=== PATIENT | male | born 1950 | race Caucasian/White ===

== ENCOUNTER → 2021-07-27 14:24 | Outpatient (BNVA) | payer MEDICARE, SELFPAY | PROVIDERS: PCP Hospitalist; Visit Provider Nurse Practitioner Family | DX: G47.33 Obstructive sleep apnea (adult) (pediatric) (principal); G47.61 Periodic limb movement disorder | CPT/HCPCS: 99212 ==

== ENCOUNTER → 2022-07-26 09:10 | Outpatient (BNVA) | payer MEDICARE, SELFPAY | PROVIDERS: PCP Hospitalist; Visit Provider Nurse Practitioner Family | DX: G47.33 Obstructive sleep apnea (adult) (pediatric) (principal); G47.61 Periodic limb movement disorder; Z99.89 Dependence on other enabling machines and devices | CPT/HCPCS: 99212 ==

== ENCOUNTER 2023-08-23 11:28 | Outpatient (AMB) | payer MEDICARE, SELFPAY ==
--- NOTE | 2023-08-23 11:44 | MHC.OFFVIS ---
Intake Vital Signs 08/23/23 11:45 Height 5 ft 8 in Weight 215 lb BMI 32.7 BP 140/72 H Blood Pressure Location Rt brachial Position Sitting Pulse 54 Pulse Source Pulse Oximeter Pulse Oximetry (%) 97 Oxygen Delivery Method Room Air Intake Visit Reasons: 1 yr follow up-Conf Intake Note: patient presents for 1 year follow up it's just a follow up Allergies grass pollen Allergy (Intermediate, Verified 08/23/23 11:46) Unknown HPI HPI Comments History of Present Illness Details 72-yr-old male presents for f/u visit. Pt endorses the following interval medical history changes: Underwent left TKR in January 2023- which was very helpful. Cardiology has been following him for BLE edema. He did receive a new CPAP machine. He uses CPAP nightly- he cannot sleep without it. He does still sleep in a recliner- now tends to sleep more upright d/t arthritic hand s/s. The water runs out of the reservoir and the machine has a burning smell. States he called resp company and was told this is normal. He does not know how to adjust the CPAP humidification level. States he has only a 3rd grade education and therefore is hesitant to try to adjust this on his own. His CPAP mask strap causes ear irritation. [facility] Medical History (Updated 07/26/22 @ 10:10 by INOCENCIA Hahn) Heart murmur HTN (hypertension) Right carpal tunnel syndrome Aortic stenosis Surgical History History of carpal tunnel surgery H/O shoulder surgery H/O heart surgery Social History Alcohol intake: current Alcohol intake frequency: holidays/special occasions only Patient Tobacco Use Status: Former Tobacco user Physical Exam Vital Signs: Last Vital Signs Pulse 54 08/23/23 11:45 BP 140/72 H 08/23/23 11:45 Pulse Ox 97 08/23/23 11:45 Oxygen Delivery Method Room Air 08/23/23 11:45 BMI result Body Mass Index 32.7 Const General: cooperative and no acute distress Orientation/consciousness: patient oriented x3 Resp Effort & Inspection: normal respiratory effort and able to speak in complete sentences Neuro General: patient oriented x3 Cranial nerves: Yes CN's II-XII intact bilaterally Cognition (Neuro): normal cognition Psych Appearance: grossly normal Mental Status: mental status grossly normal Speech and movement: Normal speech and movement present Affect: normal affect Attitude: cooperative Assessment & Plan Assessment & Plan (1) Obstructive sleep apnea: Code(s): G47.33 - Obstructive sleep apnea (adult) (pediatric) (2) Periodic limb movement sleep disorder: Code(s): G47.61 - Periodic limb movement disorder Plan Continue CPAP 9 cmH2O nightly > 4 hours, as pt is having good clinical effect. Will request CPAP be connected to [employer] airview account, machine check to assess the burning smell, new mask fitting, and pt education on how to self-adjust humidification settings. Clean machine and change supplies routinely. Monitor PLMS clinically. f/u in 6 months or sooner prn. Coding Level of Care Code Est Pt Level 3 (75219) Diagnoses Obstructive sleep apnea G47.33 Periodic limb movement sleep disorder G47.61
[2023-08-23 11:45] VITALS: BP 140/72; PULSE 54; O2SAT 97; BMI 32.7
== END 2023-08-23 12:15 | disposition home or self-care (01) ==
PROVIDERS: PCP Hospitalist; Visit Provider Nurse Practitioner Family
DX: G47.33 Obstructive sleep apnea (adult) (pediatric) (principal); G47.61 Periodic limb movement disorder
CPT/HCPCS: 99213

== ENCOUNTER → 2023-08-23 11:30 | Outpatient (BNVA) | payer MEDICARE, SELFPAY | PROVIDERS: PCP Hospitalist; Visit Provider Nurse Practitioner Family | DX: G47.33 Obstructive sleep apnea (adult) (pediatric) (principal); G47.61 Periodic limb movement disorder | CPT/HCPCS: 99212 ==

== ENCOUNTER 2024-02-21 11:19 | Outpatient (AMB) | payer MEDICARE, SELFPAY ==
--- NOTE | 2024-02-21 11:27 | MHC.OFFVIS ---
Vital Signs 02/21/24 11:28 Height 5 ft 8 in Weight 226 lb BMI 34.4 BP 134/70 Blood Pressure Location Rt brachial Position Sitting Pulse 62 Pulse Source Pulse Oximeter Pulse Oximetry (%) 97 Oxygen Delivery Method Room Air Intake Visit Reasons: 6m follow up-CONF Intake Note: Patient presents for 6 month follow up Allergies grass pollen Allergy (Intermediate, Verified 02/21/24 11:29) Unknown HPI Comments Details: 73-yr-old male presents for follow-up visit of sleep apnea. Pt denies any significant interval medical history changes. Since the last visit, he did receive a new CPAP machine. He states the new CPAP machine is working very well. He is sleeping well with his CPAP. He does state that he was tried on medication for his memory. He was forgetting why he went into a room or what he went to go to a store for. He was worried what would happen if he started to forget if he gave his however his PCP tried him on 3 different medications, felt it helped his memory but one caused nightmares and the other he did not tolerate. States he has already had difficulty names- states that he always thought this was d/t his dyslexia. He has f/u w/ [facility]- has been having urinary frequency and urgency. Urinary does drip. He states that he cannot stop voiding once it starts. Now wearing pants w/ elastic waist band- to make it easier to make it to the bathroom soon. Does have a h/o BPH. He has a long h/o enuresis (1-2 x's especially if dreaming about going to the bathroom. Denies change in gait- states gait is better since undergoing left TKR, he now walks straighter. RLE turns outward while walking, left foot used to. He continues to have leg swelling. Leg movements are not bothersome. Overal he is not very active- needs to stay with his . He is still his 's primary caregiver- his will be going on hospice. He does have a couple of hours per week where he has time for himself- goes to a old friend's house. [facility] Medical History (Updated 02/21/24 @ 12:58 by INOCENCIA Hahn) Heart murmur HTN (hypertension) Right carpal tunnel syndrome Aortic stenosis Surgical History History of carpal tunnel surgery H/O shoulder surgery H/O heart surgery Social History Alcohol intake: current Alcohol intake frequency: holidays/special occasions only Patient Tobacco Use Status: Former Tobacco user Physical Exam Vital Signs: Last Vital Signs Pulse 62 02/21/24 11:28 BP 134/70 02/21/24 11:28 Pulse Ox 97 02/21/24 11:28 Oxygen Delivery Method Room Air 02/21/24 11:28 BMI result Body Mass Index 34.4 Const General: no acute distress Orientation/consciousness: patient oriented x3 HEENT Other: Mallampati stage Resp Effort & Inspection: normal respiratory effort and able to speak in complete sentences Auscultation: clear to auscultation bilaterally Neuro Other: Stands slowly. Mild RLE external rotation. Stride ok. No magnetic/shuffling gait. General: patient oriented x3 Cranial nerves: Yes CN's II-XII intact bilaterally Motor exam (neuro): 5/5 motor strength present throughout Psych Mental Status: mental status grossly normal Speech and movement: Clear speech present Attitude: cooperative Assessment & Plan Assessment & Plan (1) Obstructive sleep apnea: Code(s): G47.33 - Obstructive sleep apnea (adult) (pediatric) Category: Medical (2) Periodic limb movement sleep disorder: Code(s): G47.61 - Periodic limb movement disorder Category: Medical (3) Cognitive changes: Code(s): R41.89 - Other symptoms and signs involving cognitive functions and awareness Category: Medical Plan Continue CPAP 9 cmH2O nightly > 4 hours, as pt is having good clinical effect. Will request new CPAP machine be connected to [employer] account. Clean machine and change supplies routinely. Monitor PLMS clinically. For memory difficulties: Pt does also report urinary s/s, though no gait changes or magnetic gait, thus low suspicion for NPH. Will request recent PCP notes- pt does not recall which medications he was tried on. Advised to try to engage in regular physical activity, cognitive and social activities. Note there may be some level of caregiver stress/burden impacting pt's cognitive s/s. Future considerations- neuro-psych eval, head imaging rah assess for NPH. f/u in 6-12 months or sooner prn. Scribe Plan - Not visible on output: Continue [CPAP][APAP] cmH2O nightly > 4 hours, as pt continues to have good clinical effect from use.. Clean CPAP machine and supplies routinely. Change CPAP supplies routinely. Pt to contact us or respiratory compnay with any questions or concerns. Coding Level of Care Code Est Pt Level 3 (76178) Diagnoses Obstructive sleep apnea G47.33 Periodic limb movement sleep disorder G47.61 Cognitive changes R41.89
[2024-02-21 11:28] VITALS: BP 134/70; PULSE 62; O2SAT 97; BMI 34.4
== END 2024-02-21 12:15 | disposition home or self-care (01) ==
PROVIDERS: PCP Hospitalist; Visit Provider Nurse Practitioner Family
DX: G47.33 Obstructive sleep apnea (adult) (pediatric) (principal); G47.61 Periodic limb movement disorder; R41.89 Other symptoms and signs involving cognitive functions and awareness
CPT/HCPCS: 99213

== ENCOUNTER → 2024-02-21 11:19 | Outpatient (BNVA) | payer MEDICARE, SELFPAY | PROVIDERS: PCP Hospitalist; Visit Provider Nurse Practitioner Family | DX: G47.33 Obstructive sleep apnea (adult) (pediatric) (principal); G47.61 Periodic limb movement disorder; R41.89 Other symptoms and signs involving cognitive functions and awareness; Z99.89 Dependence on other enabling machines and devices | CPT/HCPCS: 99212 ==

== ENCOUNTER 2025-02-13 10:59 | Outpatient (AMB) | payer MEDICARE, SELFPAY ==
--- OUTSIDE RECORDS SUMMARY | 2025-02-13 08:40 | XMS_ITS | Encounter Summary ---
Author Organization [facility] Address [address] [place] [address] Care Team Providers Care Hazardous Materials Waste Technician Name Role Phone Darren Vaz MD Primary Care Provider [phone] Reason for Visit * Reason Comments Follow-up 3 mo f/u Encounter Details Date Type Department Care Team (Late st Contact Info) Description 02/13/2025 8:40 AM EDT Office Visit [facility] - [address] [place] [id number] Crystal Posadas NP [address] [place] [address] Coronary artery disease involving coushatta coronary artery of coushatta heart without angina pectoris (Primary Dx); Primary hypertension; Severe aortic stenosis; Hyperlipidemia, unspecified hyperlipidemia type Social History Tobacco Use Types Packs/Day Years Used Date Smoking Tobacco: Former Smokeless Tobacco: Never Alcohol Use Standard Drinks/Week Comments Yes 0 (1 standard drink = 0.6 oz pur e alcohol) occasional Sex and Gender Information Value Date Recorded Sex Assigned at Not on file Legal Sex Male 9:45 AM EST Gender Identity Not on file Sexual Orientation Not on file documented as of this encounter Last Filed Vital Signs Vital Sign Reading Time Taken Comments Blood Pressure 130/82 02/13/2025 8:48 AM EDT Pulse 78 02/13/2025 8:48 AM EDT Temperature - - Respiratory Rate - - Oxygen Saturation 93% 02/13/2025 8:48 AM EDT Inhaled Oxygen Concentration - - Weight 104 kg (229 lb) 02/13/2025 8:48 AM EDT Height 172.7 cm (5' 8 ) 02/13/2025 8:48 AM EDT Body Mass Index 34.82 02/13/2025 8:48 AM EDT documented in this encounter Progress Notes * Crystal Posadas NP - 02/13/2025 8:40 AM EDTAssociated Problem(s): Coronary artery disease Patient denies any new anginal symptoms. Stress testing as outlined above negative for ischemia. Hewill continue on aspirin, statin, metoprolol and amlodipine. Instructed to call 911 or go to the emergency room should the patient begin to experience chest pain or pressure lasting greater than 10 mi nutes does not resolve with rest. * Crystal Posadas NP - 02/13/2025 8:40 AM EDTAssociated Problem(s): Hypertension Acceptable during today's exam with a reading of 130/82. He will continue on his current dose of amlodipine 10 mg, losartan 100 mg, metoprolol succinate 50 mg. Educated on the importance of diet lifestyle to help further assist in reducing blood pressure. The patient was encouraged to follow low-salt low-fat diet, make purposeful strides towards weight loss, and engage in routine aerobic exerciseas tolerated. * Crystal Posadas NP - 02/13/2025 8:40 AM EDTAssociated Problem(s): Severe aortic stenosis Is post AVR in 2015. He appears to euvolemic upon exam today. He will continue on his current dose of furosemide 40 mg. Patient had surveillance echocardiogram in July 2024 which revealed a well-seated and normally functioning prosthetic aortic valve. * Crystal Posadas NP - 02/13/2025 8:40 AM EDTAssociated Problem(s): Hyperlipidemia Continue Lipitor 40 mg and he will be mindful of his dietary fat intake. Goal LDL less than 70. Canconsider updating fasting lipid profile prior to his next in office visit unless already performed by his PCP. documented in this encounter Plan of Treatment Not on file documented as of this encounter Visit Diagnoses Diagnosis Coronary artery disease involving coushatta coronary artery of coushatta heart without angina pectoris- Primary Primary hypertension Unspecified essential hypertension Severe aortic stenosis Aortic valve disorders Hyperlipidemia, unspecified hyperlipidemia type documented in this encounter Discontinued Medications Medication Sig Discontinue Reason Start Date End Da te furosemide (LASIX) 20 mg tablet Take 1 tablet (20 mg total) by mouth 2 (two) times a day. Duplicate order 01/28/2025 02/13/2025 documented as of this encounter Care Teams Hazardous Materials Waste Technician Relationship Specialty Start Date End Date Darren Vaz MD [address] [place] [phone] PCP - General Internal Medicine 05/25/20 documented as of this encounter
[2025-02-13 11:36] VITALS: BP 104/60; PULSE 65; O2SAT 95; BMI 34.4
--- NOTE | 2025-02-13 11:36 | MHC.OFFVIS ---
Vital Signs 02/13/25 11:36 Height 5 ft 8 in Weight 226 lb BMI 34.4 BP 104/60 Blood Pressure Location Rt brachial Position Sitting Pulse 65 Pulse Source Pulse Oximeter Pulse Oximetry (%) 95 Oxygen Delivery Method Room Air Intake Visit Reasons: 1yr F/U Intake Note: Patient presents for 6 month follow up Electrical Lineman Required: No Accompanied by: Self / Same As Patient Allergies grass pollen Allergy (Intermediate, Verified 02/13/25 11:37) Unknown Medication List - Last Reconciled 02/13/25 by INOCENCIA Hahn amlodipine 5 mg PO DAILY aspirin (Adult Low Dose Aspirin) 81 mg PO DAILY atorvastatin 40 mg PO DAILY cholecalciferol (vitamin D3) 25 mcg PO DAILY furosemide 20 mg PO DAILY furosemide (Lasix) 40 mg PO DAILY losartan 25 mg PO DAILY losartan 100 mg PO DAILY metoprolol succinate ER 50 mg PO DAILY oxybutynin chloride ER 10 mg PO DAILY pantoprazole 40 mg PO DAILY sertraline 25 mg PO DAILY solifenacin 10 mg PO DAILY tamsulosin 0.4 mg PO BEDTIME trazodone 50 mg PO DAILY trazodone 100 mg PO BEDTIME PRN HPI Comments Details: 73-yr-old male presents for follow-up visit of sleep apnea. Pt denies any significant interval medical history changes. However, since the last visit, his has , and since has been trying to pay more attention was phone healthcare needs. Notes that this is his 3rd medical appointment today, that he had recent cardiac testing that was within normal limits Reports he is sleeping well with his CPAP. He is now able to sleep longer, as he does not need to wake up to care for his . Sometimes he wakes up with a dry mouth, even when the CPAP water tank reservoir still has water in it. He does take sips of water when he wakes up at night bathroom He endorses some restless leg symptoms, however does not feel that these are bothersome enough to start medication at this time No reports of worsening memory, however notes that his dyslexia can make it difficult to use the computer, specifically at C5 to figure out what to do with his 's old medical equipment. [employer]: [email or web address] [address] [facility], [facility], [address] Phone: , CPAP machine info: [employer] 11 AutoSet Serial number [id number] [employer] Compliance Report 11/15/2024 - 02/12/2025 Overall usage 99% Usage greater than 4 hours 90% Average usage (days used) 7 hours 39 minutes Mode CPAP 9 cmH2O with EPR 2 Median leaks 39 L/min Residual AHI 3.9 per hour [facility] Medical History (Updated 02/21/24 @ 12:58 by INOCENCIA Hahn) Heart murmur HTN (hypertension) Right carpal tunnel syndrome Aortic stenosis Surgical History History of carpal tunnel surgery H/O shoulder surgery H/O heart surgery Social History Alcohol intake: current Alcohol intake frequency: holidays/special occasions only Patient Tobacco Use Status: Former Tobacco user Physical Exam Vital Signs: Last Vital Signs Pulse 65 02/13/25 11:36 BP 104/60 02/13/25 11:36 Pulse Ox 95 02/13/25 11:36 Oxygen Delivery Method Room Air 02/13/25 11:36 BMI result Body Mass Index 34.4 Const General: no acute distress Orientation/consciousness: patient oriented x3 HEENT Other: Mallampati stage Resp Effort & Inspection: normal respiratory effort and able to speak in complete sentences Auscultation: clear to auscultation bilaterally Neuro Other: Stands slowly. Mild RLE external rotation. Stride ok. No magnetic/shuffling gait. General: patient oriented x3 Cranial nerves: Yes CN's II-XII intact bilaterally Motor exam (neuro): 5/5 motor strength present throughout Psych Mental Status: mental status grossly normal Speech and movement: Clear speech present Attitude: cooperative Assessment & Plan Assessment & Plan (1) Obstructive sleep apnea: Code(s): G47.33 - Obstructive sleep apnea (adult) (pediatric) Category: Medical (2) Periodic limb movement sleep disorder: Code(s): G47.61 - Periodic limb movement disorder Category: Medical (3) Cognitive changes: Code(s): R41.89 - Other symptoms and signs involving cognitive functions and awareness Category: Medical Plan Continue CPAP 9 cmH2O nightly > 4 hours, as pt is having good clinical effect. If morning dry mouth, advised to adjust humidification level or try OTC XyliMelts 1-2 caps as needed CPAP machine is now connected to patient's [employer] airview account. Clean machine and change supplies routinely. Use distilled water in CPAP water tank reservoir For PLMS/RLS: Patient is not interested starting medication for this Monitor clinically For memory difficulties: We will continue to monitor clinically Encouraged to engage in regular physical activity, cognitive and social activities. Future considerations- neuro-psych eval, head imaging f/u in 6-12 months or sooner prn. Coding Level of Care Code Est Pt Level 3 (67252) Diagnoses Obstructive sleep apnea G47.33 Periodic limb movement sleep disorder G47.61 Cognitive changes R41.89
--- OUTSIDE RECORDS SUMMARY | 2025-02-13 11:55 | XMS_ITS ---
Author Name [facility] Organization Unknown Encounters Encounter Type Encounter Reason Primary Diagnosis Location Date Ambulatory [facility] 05/01/2024 Care Team Organization Name Specialty Phone Email Start Date End Da te [facility] 2024 [facility] 01/19/2024 [facility] 05/11/2022
--- OUTSIDE RECORDS SUMMARY | 2025-02-13 11:55 | XMS_ITS | Patient Health Record ---
Author Organization [facility] Address [address] [place] [address] Care Team Providers Care Regional Director Name Role Phone YOLANDA YANCEY Primary Care Provider [phone] Leeann Becerra Unavailable [phone] KaterynaRebecca kline Unavailable [phone] Allergies No Known Allergies Results Component Value Reference Range Notes Comp. Metabolic Panel (14-3 [id number] Reviewed date:02/01/2025 11:17:12 AM Interpretation: Performing Lab:[facility], [facility], Phone - [phone], Director - Marisol Notes/Report: Glucose 101 70-99 mg/dL BUN 17 8-27 mg/dL Creatinine 1.11 0.76-1.27 mg/dL eGFR 69 >59 mL/min/1.73 BUN/Creatinine Ratio 15 10-24 Sodium 142 134-144 mmol/L Potassium 4.2 3.5-5.2 mmol/L Chloride 106 96-106 mmol/L Carbon Dioxide, Total 23 20-29 mmol/L Calcium 9.6 8.6-10.2 mg/dL Protein, Total 6.5 6.0-8.5 g/dL Albumin 4.1 3.8-4.8 g/dL Globulin, Total 2.4 1.5-4.5 g/dL Bilirubin, Total 0.9 0.0-1.2 mg/dL Alkaline Phosphatase 61 44-121 IU/L AST (SGOT) 21 0-40 IU/L ALT (SGPT) 24 0-44 IU/L Lipid Panel-[id number] Reviewed date:02/01/2025 07:54:16 AM Interpretation: Performing Lab:[facility], [address] [facility], Phone - [phone], Director - Marisol Notes/Report: Cholesterol, Total 88 100-199 mg/dL Triglycerides 70 0-149 mg/dL HDL Cholesterol 34 >39 mg/dL VLDL Cholesterol Guicho 15 5-40 mg/dL LDL Chol Calc (NIH) 39 0-99 mg/dL Albumin/Creatinine Ratio,Masoud ne-[id number] Reviewed date:02/01/2025 07:54:10 AM Interpretation: Performing Lab:[facility] [address] [place] [address], Phone - [phone], Director - Marisol Notes/Report: Creatinine, Urine 140.3 Not Estab. mg/dL Albumin, Urine 4.5 Not Estab. ug/mL Alb/Creat Ratio 3 0-29 mg/g creat Normal: 0 - 29 Moderately increased: 30 - 300 Severely increased: >300 TSH+Free [id number] Reviewed date:11/09/2024 07:46:35 AM Interpretation: Performing Lab:[facility], [address] [place] [address], Phone - [phone], Director - Marisol Notes/Report: TSH 2.530 0.450-4.500 uIU/mL T4,Free(Direct) 1.37 0.82-1.77 ng/dL Vitamin [id number] Reviewed date:11/09/2024 07:46:44 AM Interpretation: Performing Lab:[facility] [address] [place] [address], Phone - [phone], - Marisol Notes/Report: Vitamin B12 623 327-3961 pg/mL Hemoglobin [id number] Reviewed date:11/09/2024 07:46:50 AM Interpretation: Performing Lab:[facility] [address] [place] [address], Phone - [phone], Director - Marisol Notes/Report: Hemoglobin A1c 4.7 4.8-5.6 % . Prediabetes: 5.7 - 6.4 Diabetes: >6.4 Glycemic control for adults with diabetes: <7.0 Comp. Metabolic Panel (14)-3 Reviewed date:12/24/2024 05:21:56 PM Interpretation: Performing Lab:[facility] [address] [place] [address], Phone - [phone], Director Harper Damon Notes/Report: A courtesy copy of this report has been sent to [phone] Glucose 105 70-99 mg/dL BUN 19 8-27 mg/dL Creatinine 1.24 0.76-1.27 mg/dL eGFR 60 >59 mL/min/1.73 BUN/Creatinine Ratio 15 10-24 Sodium 140 134-144 mmol/L Potassium 4.2 3.5-5.2 mmol/L Chloride 103 96-106 mmol/L Carbon Dioxide, Total 21 20-29 mmol/L Calcium 9.7 8.6-10.2 mg/dL Protein, Total 6.6 6.0-8.5 g/dL Albumin 4.3 3.8-4.8 g/dL Globulin, Total 2.3 1.5-4.5 g/dL Bilirubin, Total 1.3 0.0-1.2 mg/dL Alkaline Phosphatase 80 44-121 IU/L AST (SGOT) 21 0-40 IU/L ALT (SGPT) 21 0-44 IU/L Lipid Panel-[id number] Reviewed date:11/23/2024 09:18:29 AM Interpretation: Performing Lab:[facility], [facility], Phone - [phone], Director - Marisol Notes/Report: A courtesy copy of this report has been sent to [phone] Cholesterol, Total 97 100-199 mg/dL Triglycerides 124 0-149 mg/dL HDL Cholesterol 32 >39 mg/dL VLDL Cholesterol Guicho 22 5-40 mg/dL LDL Chol Calc (NIH) 43 0-99 mg/dL Albumin/Creatinine Ratio,[facility]-[id number] Reviewed date:12/24/2024 05:20:48 PM Interpretation: Performing Lab:[facility], [facility], Phone - [phone], Director - Marisol Notes/Report: A courtesy copy of this report has been sent to [phone] Creatinine, Urine 163.1 Not Estab. mg/dL Albumin, Urine 7.8 Not Estab. ug/mL Alb/Creat Ratio 5 0-29 mg/g creat Normal: 0 - 29 Moderately increased: 30 - 300 Severely increased: >300 Reason For Referral Reason venous insufficiency Please evaluate and treat Diagnosis 1 Venous insufficiency (chronic) (peripheral) (I87.2) Referral Organization [facility] Referring Provider First Name YOLANDA Referring Provider Last Name NAYE Referring Provider Speciality Internal M edicine Referred Provider Specialty Vascular Ruby jacob General Notes Please call the nenita ent to schedule the appointment, [facility] [phone], Parul Mehta 12/19/2024 03:45:16 PM > Referral Priority Routine Medications Medication SIG (Take, Route, Frequency, Duration) Notes Start Date End Date Status Solifenacin Succinate 10 MG 1 tablet Orally Once a day Active Pantoprazole Sodium 40 MG TAKE 1 TABLET EVERY DAY; Duration: 90 Active Cialis 10 MG 1 tablet as needed Orally; Duration: 30 day(s) 10/05/2017 Active Aspir-81 81 MG 1 tablet Orally Once a day; Duration: 30 day(s) 10/05/2017 Active Metoprolol Succinate ER 50 MG TAKE 1 TABLET EVERY DAY; Duration: 90 Active Losartan Potassium 100 MG 1 tablet Orall y Once a day; Duration: 30 day(s) 02/19/2022 Active Memantine HCl 10 MG 1 tablet Orally Once a day; Duration: 30 days 11/18/2023 Not-Takin g Vitamin D 2000 UNIT 1 tablet Orally Once a day; Duration: 30 day(s) 10/05/2017 Active Clotrimazole 1 % APPLY 1 APPLICATION EXTERNALLY TWICE A DAY; Duration: 30 Active oxyBUTYnin Chloride ER 10 MG TAKE 1 TABLET TWICE DAILY; Duration: 90 Not-Taking Sertraline HCl 25 MG 1 tablet Orally Onc e a day; Duration: 90 days 11/13/2024 Active amLODIPine Besylate 10 MG 1 tablet Orall y Once a day; Duration: 30 days 02/19/2022 Active Aricept 10 MG 1 tablet at bedtime Orally Once a day; Duration: 30 days Not-Taking Atorvastatin Calcium 40 MG TAKE 1 TABLET EVERY DAY; Duration: 90 Active traZODone HCl 100 MG TAKE 1 TABLET AT BEDTIME; Duration: 30 Active traZODone HCl 50 MG TAKE 1 TABLET AT BEDTIME; Duration: 90 Active Tamsulosin HCl 0.4 MG 1 capsule Orally O nce a day 05/01/2024 Active Furosemide 20 MG TAKE 2 TABLET EVERY DAY Orally Once a day; Duration: 90 days Active VESIcare 10 MG 1 tablet Orally Once a day 05/01/2024 Active Levocetirizine Dihydrochloride 5 MG 1 tablet in the evening Orally Once a day; Duration: 90 days Active Immunizations Vaccine Route Administration Date Status Comme nts COVID Unknown 09/04/2020 Administered Pfizer COVID 19 Pfizer Unknown 09/09/2020 Administered COVID 19 Pfizer Unknown 09/30/2020 Administered COVID 19 Pfizer Unknown 05/16/2021 Administered Flu High-Dose Unknown 04/12/2022 Administered Fluzone High Dose 15600 IM Intramuscular 05/01/2024 Administered Fluzone High-Dose IM Intramuscular 04/29/2023 Administered Influenza, high dose seasonal Unknown 03/22/2018 Administered at [facility] Influenza, high dose seasonal IM Intramuscular 04/13/2019 Administered Pneumococcal conjugate PCV 13 Unknown 06/29/2018 Administered Pneumococcal polysaccharide PPV23 Unknown 11/06/2013 Administered Shingrix Unknown 02/24/2018 Administered Shingrix Unknown 04/25/2018 Administered Tdap Unknown 07/24/2010 Administered Zoster Unknown 05/07/2013 Administered Social History Tobacco Use: Social History Observation Description Date Details (start date - stop date) Former Smoker NA - NA Tobacco Use/Smoking Question Answer Notes Are you a former smoker How long has it been since you last smoked? > 10 years Alcohol Screen (Audit-C) Question Answer Notes Did you have a drink contain ing alcohol in the past year? Yes How often did you have a dri nk containing alcohol in the past year? Monthly or less (1 point) How many drinks did you have on a typical day when you were drinking in the past year? 1 or 2 drinks (0 point) Points 1 Interpretation Negative Problems Problem Type SNOMED Code ICD Code Onset Dates Problem Status W/U Status Risk Notes Problem Vitamin D deficiency (63671065) Vitamin D deficiency, unspecified (E55.9) Active confirmed Problem Mixed hyperlipidemia (036554956) Mixed hyperlipidemia (E78.2) Active confirmed Problem Chronic alcoholism in remission (082006763) Alcohol dependence, in remission (F10.21) Active confirmed Problem Major depression, single episode (71292793) Major depressive disorder, single episode, unspecified (F32.9) Active confirmed Problem Anxiety disorder (593959972) Anxiety disorder, unspecified (F41.9) Active confirmed Problem Insomnia (671483536) Insomnia, unspecified (G47.00) Active confirmed Problem Obstructive sleep apnea syndrome (17793971) Obstructive sleep apnea (adult) (pediatric) (G47.33) Active confirmed Problem Carpal tunnel syndrome (63130542) Carpal tunnel syndrome, unspecified upper limb (G56.00) Active confirmed Problem Essential hypertension (70189049) Essential (primary) hypertension (I10) Active confirmed Problem Chronic kidney disease due to hypertension (437933927994898) Hypertensive chronic kidney disease with stage 1 through stage 4 chronic kidney disease, or unspecified chronic kidney disease (I12.9) Active confirmed Problem Atherosclerotic heart disease of [place] coronary artery without angina pectoris (445489606187248) Atherosclerotic heart disease of [place] coronary artery without angina pectoris (I25.10) Active confirmed Problem Aortic valve disorder (5571317) Nonrheumatic aortic (valve) stenosis (I35.0) Active confirmed Problem Raynaud's disease (114029713) Raynaud's syndrome without gangrene (I73.00) Active confirmed Problem Peripheral venous insufficiency (94264610) Venous insufficiency (chronic) (peripheral) (I87.2) Active confirmed Problem Gastro-esophageal reflux disease without esophagitis (723583252) Gastro-esophageal reflux disease without esophagitis (K21.9) Active confirmed Problem Constipation (15714181) Constipation, unspecified (K59.00) Active confirmed Problem Dermatitis (416464351) Dermatitis, unspecified (L30.9) Active confirmed Problem Full thickness rotator cuff tear (657018282) Complete rotator cuff tear or rupture of unspecified shoulder, not specified as traumatic (M75.120) Active confirmed Problem Chronic kidney disease stage 2 (200293093) Chronic kidney disease, stage 2 (mild) (N18.2) Active confirmed Problem Erectile dysfunction (disorder) (420703257) Male erectile dysfunction, unspecified (N52.9) Active confirmed Problem Heart murmur (finding) (87090005) Cardiac murmur, unspecified (R01.1) Active confirmed Problem Cardiac implant in situ (271860476) Presence of cardiac and vascular implant and graft, unspecified (Z95.9) Active confirmed Problem Benign prostatic hypertrophy without outflow obstruction (164997406) Benign prostatic hyperplasia without lower urinary tract symptoms (N40.0) Active confirmed Problem Lower urinary tract symptoms due to benign prostatic hypertrophy (94902451777834) Benign prostatic hyperplasia with lower urinary tract symptoms (N40.1) Active confirmed Problem Suicide attempt (26567879) Suicide attempt, initial encounter (T14.91XA) Active confirmed Problem Amnesia (95558075) Complaints of memory disturbance (R41.3) Active confirmed Vital Signs Heart Rate 69 /min 12/11/2024 Temperature 98.0 degrees Fahrenheit 12/11/2024 Blood pressure diastolic 74 mm Hg 12/11/2024 Oximetry 90 % 12/11/2024 Height 67.13 in 12/11/2024 Blood pressure systolic 110 mm Hg 12/11/2024 Weight 226.8 lbs 12/11/2024 BMI 35.38 kg/m2 12/11/2024 Encounters Encounter Location Date Provider Diagnosis [address] [address] 05/01/2024 YOLANDA YANCEY Atherosclerotic hear t disease of [place] coronary artery without angina pectoris I25.10 ; Essential (primary) hypertension I10 ; Anxiety disorder, unspecified F41.9 ; Gastro-esophageal reflux disease without esophagitis K21.9 and Benign prostatic hyperplasia with lower urinary tract symptoms N40.[address] [address] 07/05/2024 [place] Alam Acute bronchitis due to other specified organisms J20.[address] [address] 11/13/2024 Ghadeer Rodríguezloum Atherosclerotic hear t disease of [place] coronary artery without angina pectoris I25.10 ; Annual visit for general adult medical examination without abnormal findings Z00.00 ; Essential (primary) hypertension I10 ; Gastro-esophageal reflux disease without esophagitis K21.9 ; Benign prostatic hyperplasia with lower urinary tract symptoms N40.1 ; Insomnia, unspecified G47.00 ; Dyspnea, unspecified R06.00 and Major depressive disorder, single episode, unspecified F32.[address] [address] 12/11/2024 YOLANDA YANCEY Anxiety disorder, unspecified F41.9 ; Atherosclerotic heart disease of [place] coronary artery without angina pectoris I25.10 ; Mixed hyperlipidemia E78.2 ; Venous insufficiency (chronic) (peripheral) I87.2 ; Essential (primary) hypertension I10 ; Gastro-esophageal reflux disease without esophagitis K21.9 and Insomnia, unspecified G47.[address] [address] 02/15/2024 YOLANDA YANCEY [address] [address] 05/03/2024 YOLANDA YANCEY Impaired fasting glucose R73.[address] [address] 12/03/2024 Rebecca Choi Insomnia, unspecifie d G47.[address] [address] 12/12/2024 YOLANDA YANCEY Insomnia, unspecifie d G47.[address] [address] 12/12/2024 Rebecca Choi Assessments Encounter Date Diagnosis (ICD Code) Assessment Notes Treatment Notes Treatment Clinical Notes Section Notes 05/03/2024 Impaired fasting glucose (ICD-10 - R73.01) 07/05/2024 Acute bronchitis due to other specified organisms (ICD-10 - J20.8) 73-year-old gentleman with GERD, sleep apnea on CPAP came in with cough chills and not well for the last 5 days. Productive cough and pleuritic chest pain, based on exam and 6 presentation most likely acute bacterial bronchitis/possibl e early pneumonia. Patient is currently afebrile but due to other complaints we will give him Z-Korey for 5 days, he will use Flonase as he has severe congestion. Mucinex 600 mg twice a day as needed. Continue with Tylenol as needed for fever. If no improvement we will consider a chest x-ray. Chronic medical condition GERD, sleep apnea stable 11/13/2024 Atherosclerotic heart disease of [place] coronary artery without angina pectoris (ICD-10 - I25.10) Mr. Smith is a 73 year old gentleman with impaired fasting glucose, hypertension, hyperlipidemia, CAD and GERD here for Medicare Wellness visit. Plan is as follows: CAD/venous insuffeciency. s/p valve replacement. He is on Lasix. He follows up with Cardiology. Keep legs elevated and monitor weight at home. He may also wear compression stockings. Hypertension. Blood pressure is within reasonable limits. Continue current regimen. EKG is done in office today with heart rate of 63 bpm, sinus rhythm. 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 He had a recent echo which showed ejection fraction of 60-65 percent, with no LV wall motion abnormality. With right ventricle cavity mildly dilated, trace mitral and tricuspid regurgitation. Otherwise no concern. check comp/microalbumin Hyperlipidemia. Last lipid panel within normal limits. Continue Atorvastatin 40 mg daily. GERD. Continue Pantoprazole 40 MG daily. BPH. He is on Flomax 0.4 mg and Vesicare 10 mg EDWAR. He is interested on using CPAP. MDD/Insmonia: started patient on sertraline 25 mg. Possible side effects have been discussed. He does have family support. No SI. Will follow up in 4 weeks Increased Trazodone to 100mg. Dyspnea. Ongoing CC since May. Etiology is Multifactorial given history of cardiac problems, deconditioning, he recently had echo which was non-concerning, he does have an upcoming stress echo test done with the electronic resources librarian. Physical examination is non-concerning with vital signs within normal limits and EKG is not concerning as well. However, with a long history of smoking, will get a CT of the lung and order PFTS to r/o obstructive lung disease. Eye screening. He sees his permit technician regularly. Dental screening. He sees dentist regularly Immunizations. He is up-to-date on his COVID, influenza, pneumonia, shingles, zoster, TDAP vaccinations. Full code. HCP form has been provided for update as his was his HCP and she recently . General concerns have been discussed I have rendered the services for this patient under direct supervision of Dr. Yancey, who did not see the patient but was available upon request 11/13/2024 Annual visit for general adult medical examination without abnormal findings (ICD-10 - Z00.00) Mr. Smith is a 73 year old gentleman with impaired fasting glucose, hypertension, hyperlipidemia, CAD and GERD here for Medicare Wellness visit. Plan is as follows: CAD/venous insuffeciency. s/p valve replacement. He is on Lasix. He follows up with Cardiology. Keep legs elevated and monitor weight at home. He may also wear compression stockings. Hypertension. Blood pressure is within reasonable limits. Continue current regimen. EKG is done in office today with heart rate of 63 bpm, sinus rhythm. 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 He had a recent echo which showed ejection fraction of 60-65 percent, with no LV wall motion abnormality. With right ventricle cavity mildly dilated, trace mitral and tricuspid regurgitation. Otherwise no concern. check comp/microalbumin Hyperlipidemia. Last lipid panel within normal limits. Continue Atorvastatin 40 mg daily. GERD. Continue Pantoprazole 40 MG daily. BPH. He is on Flomax 0.4 mg and Vesicare 10 mg EDWAR. He is interested on using CPAP. MDD/Insmonia: started patient on sertraline 25 mg. Possible side effects have been discussed. He does have family support. No SI. Will follow up in 4 weeks Increased Trazodone to 100mg. Dyspnea. Ongoing CC since May. Etiology is Multifactorial given history of cardiac problems, deconditioning, he recently had echo which was non-concerning, he does have an upcoming stress echo test done with the electronic resources librarian. Physical examination is non-concerning with vital signs within normal limits and EKG is not concerning as well. However, with a long history of smoking, will get a CT of the lung and order PFTS to r/o obstructive lung disease. Eye screening. He sees his permit technician regularly. Dental screening. He sees dentist regularly Immunizations. He is up-to-date on his COVID, influenza, pneumonia, shingles, zoster, TDAP vaccinations. Full code. HCP form has been provided for update as his was his HCP and she recently . General concerns have been discussed I have rendered the services for this patient under direct supervision of Dr. Yancey, who did not see the patient but was available upon request 12/03/2024 Insomnia, unspecified (ICD-10 - G47.00) 12/11/2024 Anxiety disorder, unspecified (ICD-10 - F41.9) Mr. Smith is a 74 year old gentleman with impaired fasting glucose, hypertension, hyperlipidemia, CAD and recent stress test which was negative for ischemia and last echocardiogram showed EF of 60-65% and GERD here for follow-up on generalized anxiety disorder. Generalized anxiety disorder. He is stable on sertraline 25 mg daily. He has tolerated the medication fine. Discussed with patient we have little to go up if needed. No need for therapy at this point in time. Coronary artery disease/hypertensi on/hyperlipidemia. He recently had stress test done which was negative. His blood pressure is well controlled on losartan 100 mg along with amlodipine 10 mg daily and he is also on atorvastatin 40 mg and last lipid panel was within reasonable limits. Venous insufficiency. He is currently on Lasix 40 mg in the morning which helped with fluid retention from coronary artery disease and venous insufficiency. Stay hydrated. Given referral to vascular surgery for further evaluation. Insomnia. He is currently on trazodone 150 mg daily. Acid reflux. He is on Protonix 40 mg daily and his symptoms are under control. Obesity. Side effects of obesity discussed which is making him more short of breath and causing generalized body aches and pains. Encouraged to increase physical activity cut back on calorie intake. 12/11/2024 Atherosclerotic heart disease of [place] coronary artery without angina pectoris (ICD-10 - I25.10) Mr. Smith is a 74 year old gentleman with impaired fasting glucose, hypertension, hyperlipidemia, CAD and recent stress test which was negative for ischemia and last echocardiogram showed EF of 60-65% and GERD here for follow-up on generalized anxiety disorder. Generalized anxiety disorder. He is stable on sertraline 25 mg daily. He has tolerated the medication fine. Discussed with patient we have little to go up if needed. No need for therapy at this point in time. Coronary artery disease/hypertensi on/hyperlipidemia. He recently had stress test done which was negative. His blood pressure is well controlled on losartan 100 mg along with amlodipine 10 mg daily and he is also on atorvastatin 40 mg and last lipid panel was within reasonable limits. Venous insufficiency. He is currently on Lasix 40 mg in the morning which helped with fluid retention from coronary artery disease and venous insufficiency. Stay hydrated. Given referral to vascular surgery for further evaluation. Insomnia. He is currently on trazodone 150 mg daily. Acid reflux. He is on Protonix 40 mg daily and his symptoms are under control. Obesity. Side effects of obesity discussed which is making him more short of breath and causing generalized body aches and pains. Encouraged to increase physical activity cut back on calorie intake. 12/12/2024 Insomnia, unspecified (ICD-10 - G47.00) 05/01/2024 Essential (primary) hypertension (ICD-10 - I10) Mr. Smith is a 73 year old gentleman with impaired fasting glucose, hypertension, hyperlipidemia, CAD and GERD here for f/u Plan is as follows: CAD. s/p valve replacement. He is on Lasix. He follows up with Cardiology Venous insuffeciency. Most likely calorie/sodium intake. Dietary compliance encouraged. Continue Lasix 20 mg 2 tablets a day for a week then take 1 tablet a day. Keep legs elevated and monitor weight at home. He may also wear compression stockings. Hypertension. Blood pressure is within reasonable limits. Continue current regimen. Hyperlipidemia. Last lipid panel within normal limits. Continue Atorvastatin 40 mg daily. GERD. Continue Pantoprazole 40 MG daily. BPH. He is on Flomax 0.4 mg and Vesicare 10 mg EDWAR. He is interested on using CPAP. Eye screening. He sees his permit technician regularly. Dental screening. He sees dentist regularly Immunizations. He is up-to-date on his COVID, influenza, pneumonia, shingles, zoster, TDAP vaccinations. General health concerns discussed with patient. 05/01/2024 Atherosclerotic heart disease of [place] coronary artery without angina pectoris (ICD-10 - I25.10) Mr. Smith is a 73 year old gentleman with impaired fasting glucose, hypertension, hyperlipidemia, CAD and GERD here for f/u Plan is as follows: CAD. s/p valve replacement. He is on Lasix. He follows up with Cardiology Venous insuffeciency. Most likely calorie/sodium intake. Dietary compliance encouraged. Continue Lasix 20 mg 2 tablets a day for a week then take 1 tablet a day. Keep legs elevated and monitor weight at home. He may also wear compression stockings. Hypertension. Blood pressure is within reasonable limits. Continue current regimen. Hyperlipidemia. Last lipid panel within normal limits. Continue Atorvastatin 40 mg daily. GERD. Continue Pantoprazole 40 MG daily. BPH. He is on Flomax 0.4 mg and Vesicare 10 mg EDWAR. He is interested on using CPAP. Eye screening. He sees his permit technician regularly. Dental screening. He sees dentist regularly Immunizations. He is up-to-date on his COVID, influenza, pneumonia, shingles, zoster, TDAP vaccinations. General health concerns discussed with patient. 05/01/2024 Anxiety disorder, unspecified (ICD-10 - F41.9) Mr. Smith is a 73 year old gentleman with impaired fasting glucose, hypertension, hyperlipidemia, CAD and GERD here for f/u Plan is as follows: CAD. s/p valve replacement. He is on Lasix. He follows up with Cardiology Venous insuffeciency. Most likely calorie/sodium intake. Dietary compliance encouraged. Continue Lasix 20 mg 2 tablets a day for a week then take 1 tablet a day. Keep legs elevated and monitor weight at home. He may also wear compression stockings. Hypertension. Blood pressure is within reasonable limits. Continue current regimen. Hyperlipidemia. Last lipid panel within normal limits. Continue Atorvastatin 40 mg daily. GERD. Continue Pantoprazole 40 MG daily. BPH. He is on Flomax 0.4 mg and Vesicare 10 mg EDWAR. He is interested on using CPAP. Eye screening. He sees his permit technician regularly. Dental screening. He sees dentist regularly Immunizations. He is up-to-date on his COVID, influenza, pneumonia, shingles, zoster, TDAP vaccinations. General health concerns discussed with patient. 12/11/2024 Mixed hyperlipidemia (ICD-10 - E78.2) Mr. Smith is a 74 year old gentleman with impaired fasting glucose, hypertension, hyperlipidemia, CAD and recent stress test which was negative for ischemia and last echocardiogram showed EF of 60-65% and GERD here for follow-up on generalized anxiety disorder. Generalized anxiety disorder. He is stable on sertraline 25 mg daily. He has tolerated the medication fine. Discussed with patient we have little to go up if needed. No need for therapy at this point in time. Coronary artery disease/hypertensi on/hyperlipidemia. He recently had stress test done which was negative. His blood pressure is well controlled on losartan 100 mg along with amlodipine 10 mg daily and he is also on atorvastatin 40 mg and last lipid panel was within reasonable limits. Venous insufficiency. He is currently on Lasix 40 mg in the morning which helped with fluid retention from coronary artery disease and venous insufficiency. Stay hydrated. Given referral to vascular surgery for further evaluation. Insomnia. He is currently on trazodone 150 mg daily. Acid reflux. He is on Protonix 40 mg daily and his symptoms are under control. Obesity. Side effects of obesity discussed which is making him more short of breath and causing generalized body aches and pains. Encouraged to increase physical activity cut back on calorie intake. 11/13/2024 Essential (primary) hypertension (ICD-10 - I10) Mr. Smith is a 73 year old gentleman with impaired fasting glucose, hypertension, hyperlipidemia, CAD and GERD here for Medicare Wellness visit. Plan is as follows: CAD/venous insuffeciency. s/p valve replacement. He is on Lasix. He follows up with Cardiology. Keep legs elevated and monitor weight at home. He may also wear compression stockings. Hypertension. Blood pressure is within reasonable limits. Continue current regimen. EKG is done in office today with heart rate of 63 bpm, sinus rhythm. 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 He had a recent echo which showed ejection fraction of 60-65 percent, with no LV wall motion abnormality. With right ventricle cavity mildly dilated, trace mitral and tricuspid regurgitation. Otherwise no concern. check comp/microalbumin Hyperlipidemia. Last lipid panel within normal limits. Continue Atorvastatin 40 mg daily. GERD. Continue Pantoprazole 40 MG daily. BPH. He is on Flomax 0.4 mg and Vesicare 10 mg EDWAR. He is interested on using CPAP. MDD/Insmonia: started patient on sertraline 25 mg. Possible side effects have been discussed. He does have family support. No SI. Will follow up in 4 weeks Increased Trazodone to 100mg. Dyspnea. Ongoing CC since May. Etiology is Multifactorial given history of cardiac problems, deconditioning, he recently had echo which was non-concerning, he does have an upcoming stress echo test done with the electronic resources librarian. Physical examination is non-concerning with vital signs within normal limits and EKG is not concerning as well. However, with a long history of smoking, will get a CT of the lung and order PFTS to r/o obstructive lung disease. Eye screening. He sees his permit technician regularly. Dental screening. He sees dentist regularly Immunizations. He is up-to-date on his COVID, influenza, pneumonia, shingles, zoster, TDAP vaccinations. Full code. HCP form has been provided for update as his was his HCP and she recently . General concerns have been discussed I have rendered the services for this patient under direct supervision of Dr. Yancey, who did not see the patient but was available upon request 11/13/2024 Gastro-esophageal reflux disease without esophagitis (ICD-10 - K21.9) Mr. Smith is a 73 year old gentleman with impaired fasting glucose, hypertension, hyperlipidemia, CAD and GERD here for Medicare Wellness visit. Plan is as follows: CAD/venous insuffeciency. s/p valve replacement. He is on Lasix. He follows up with Cardiology. Keep legs elevated and monitor weight at home. He may also wear compression stockings. Hypertension. Blood pressure is within reasonable limits. Continue current regimen. EKG is done in office today with heart rate of 63 bpm, sinus rhythm. 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 He had a recent echo which showed ejection fraction of 60-65 percent, with no LV wall motion abnormality. With right ventricle cavity mildly dilated, trace mitral and tricuspid regurgitation. Otherwise no concern. check comp/microalbumin Hyperlipidemia. Last lipid panel within normal limits. Continue Atorvastatin 40 mg daily. GERD. Continue Pantoprazole 40 MG daily. BPH. He is on Flomax 0.4 mg and Vesicare 10 mg EDWAR. He is interested on using CPAP. MDD/Insmonia: started patient on sertraline 25 mg. Possible side effects have been discussed. He does have family support. No SI. Will follow up in 4 weeks Increased Trazodone to 100mg. Dyspnea. Ongoing CC since May. Etiology is Multifactorial given history of cardiac problems, deconditioning, he recently had echo which was non-concerning, he does have an upcoming stress echo test done with the electronic resources librarian. Physical examination is non-concerning with vital signs within normal limits and EKG is not concerning as well. However, with a long history of smoking, will get a CT of the lung and order PFTS to r/o obstructive lung disease. Eye screening. He sees his permit technician regularly. Dental screening. He sees dentist regularly Immunizations. He is up-to-date on his COVID, influenza, pneumonia, shingles, zoster, TDAP vaccinations. Full code. HCP form has been provided for update as his was his HCP and she recently . General concerns have been discussed I have rendered the services for this patient under direct supervision of Dr. Yancey, who did not see the patient but was available upon request 12/11/2024 Venous insufficiency (chronic) (peripheral) (ICD-10 - I87.2) Mr. Smith is a 74 year old gentleman with impaired fasting glucose, hypertension, hyperlipidemia, CAD and recent stress test which was negative for ischemia and last echocardiogram showed EF of 60-65% and GERD here for follow-up on generalized anxiety disorder. Generalized anxiety disorder. He is stable on sertraline 25 mg daily. He has tolerated the medication fine. Discussed with patient we have little to go up if needed. No need for therapy at this point in time. Coronary artery disease/hypertensi on/hyperlipidemia. He recently had stress test done which was negative. His blood pressure is well controlled on losartan 100 mg along with amlodipine 10 mg daily and he is also on atorvastatin 40 mg and last lipid panel was within reasonable limits. Venous insufficiency. He is currently on Lasix 40 mg in the morning which helped with fluid retention from coronary artery disease and venous insufficiency. Stay hydrated. Given referral to vascular surgery for further evaluation. Insomnia. He is currently on trazodone 150 mg daily. Acid reflux. He is on Protonix 40 mg daily and his symptoms are under control. Obesity. Side effects of obesity discussed which is making him more short of breath and causing generalized body aches and pains. Encouraged to increase physical activity cut back on calorie intake. 05/01/2024 Gastro-esophageal reflux disease without esophagitis (ICD-10 - K21.9) Mr. Smith is a 73 year old gentleman with impaired fasting glucose, hypertension, hyperlipidemia, CAD and GERD here for f/u Plan is as follows: CAD. s/p valve replacement. He is on Lasix. He follows up with Cardiology Venous insuffeciency. Most likely calorie/sodium intake. Dietary compliance encouraged. Continue Lasix 20 mg 2 tablets a day for a week then take 1 tablet a day. Keep legs elevated and monitor weight at home. He may also wear compression stockings. Hypertension. Blood pressure is within reasonable limits. Continue current regimen. Hyperlipidemia. Last lipid panel within normal limits. Continue Atorvastatin 40 mg daily. GERD. Continue Pantoprazole 40 MG daily. BPH. He is on Flomax 0.4 mg and Vesicare 10 mg EDWAR. He is interested on using CPAP. Eye screening. He sees his permit technician regularly. Dental screening. He sees dentist regularly Immunizations. He is up-to-date on his COVID, influenza, pneumonia, shingles, zoster, TDAP vaccinations. General health concerns discussed with patient. 05/01/2024 Benign prostatic hyperplasia with lower urinary tract symptoms (ICD-10 - N40.1) Mr. Smith is a 73 year old gentleman with impaired fasting glucose, hypertension, hyperlipidemia, CAD and GERD here for f/u Plan is as follows: CAD. s/p valve replacement. He is on Lasix. He follows up with Cardiology Venous insuffeciency. Most likely calorie/sodium intake. Dietary compliance encouraged. Continue Lasix 20 mg 2 tablets a day for a week then take 1 tablet a day. Keep legs elevated and monitor weight at home. He may also wear compression stockings. Hypertension. Blood pressure is within reasonable limits. Continue current regimen. Hyperlipidemia. Last lipid panel within normal limits. Continue Atorvastatin 40 mg daily. GERD. Continue Pantoprazole 40 MG daily. BPH. He is on Flomax 0.4 mg and Vesicare 10 mg EDWAR. He is interested on using CPAP. Eye screening. He sees his permit technician regularly. Dental screening. He sees dentist regularly Immunizations. He is up-to-date on his COVID, influenza, pneumonia, shingles, zoster, TDAP vaccinations. General health concerns discussed with patient. 11/13/2024 Benign prostatic hyperplasia with lower urinary tract symptoms (ICD-10 - N40.1) Mr. Smith is a 73 year old gentleman with impaired fasting glucose, hypertension, hyperlipidemia, CAD and GERD here for Medicare Wellness visit. Plan is as follows: CAD/venous insuffeciency. s/p valve replacement. He is on Lasix. He follows up with Cardiology. Keep legs elevated and monitor weight at home. He may also wear compression stockings. Hypertension. Blood pressure is within reasonable limits. Continue current regimen. EKG is done in office today with heart rate of 63 bpm, sinus rhythm. 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 He had a recent echo which showed ejection fraction of 60-65 percent, with no LV wall motion abnormality. With right ventricle cavity mildly dilated, trace mitral and tricuspid regurgitation. Otherwise no concern. check comp/microalbumin Hyperlipidemia. Last lipid panel within normal limits. Continue Atorvastatin 40 mg daily. GERD. Continue Pantoprazole 40 MG daily. BPH. He is on Flomax 0.4 mg and Vesicare 10 mg EDWAR. He is interested on using CPAP. MDD/Insmonia: started patient on sertraline 25 mg. Possible side effects have been discussed. He does have family support. No SI. Will follow up in 4 weeks Increased Trazodone to 100mg. Dyspnea. Ongoing CC since May. Etiology is Multifactorial given history of cardiac problems, deconditioning, he recently had echo which was non-concerning, he does have an upcoming stress echo test done with the electronic resources librarian. Physical examination is non-concerning with vital signs within normal limits and EKG is not concerning as well. However, with a long history of smoking, will get a CT of the lung and order PFTS to r/o obstructive lung disease. Eye screening. He sees his permit technician regularly. Dental screening. He sees dentist regularly Immunizations. He is up-to-date on his COVID, influenza, pneumonia, shingles, zoster, TDAP vaccinations. Full code. HCP form has been provided for update as his was his HCP and she recently . General concerns have been discussed I have rendered the services for this patient under direct supervision of Dr. Yancey, who did not see the patient but was available upon request 12/11/2024 Essential (primary) hypertension (ICD-10 - I10) Mr. Smith is a 74 year old gentleman with impaired fasting glucose, hypertension, hyperlipidemia, CAD and recent stress test which was negative for ischemia and last echocardiogram showed EF of 60-65% and GERD here for follow-up on generalized anxiety disorder. Generalized anxiety disorder. He is stable on sertraline 25 mg daily. He has tolerated the medication fine. Discussed with patient we have little to go up if needed. No need for therapy at this point in time. Coronary artery disease/hypertensi on/hyperlipidemia. He recently had stress test done which was negative. His blood pressure is well controlled on losartan 100 mg along with amlodipine 10 mg daily and he is also on atorvastatin 40 mg and last lipid panel was within reasonable limits. Venous insufficiency. He is currently on Lasix 40 mg in the morning which helped with fluid retention from coronary artery disease and venous insufficiency. Stay hydrated. Given referral to vascular surgery for further evaluation. Insomnia. He is currently on trazodone 150 mg daily. Acid reflux. He is on Protonix 40 mg daily and his symptoms are under control. Obesity. Side effects of obesity discussed which is making him more short of breath and causing generalized body aches and pains. Encouraged to increase physical activity cut back on calorie intake. 12/11/2024 Gastro-esophageal reflux disease without esophagitis (ICD-10 - K21.9) Mr. Smith is a 74 year old gentleman with impaired fasting glucose, hypertension, hyperlipidemia, CAD and recent stress test which was negative for ischemia and last echocardiogram showed EF of 60-65% and GERD here for follow-up on generalized anxiety disorder. Generalized anxiety disorder. He is stable on sertraline 25 mg daily. He has tolerated the medication fine. Discussed with patient we have little to go up if needed. No need for therapy at this point in time. Coronary artery disease/hypertensi on/hyperlipidemia. He recently had stress test done which was negative. His blood pressure is well controlled on losartan 100 mg along with amlodipine 10 mg daily and he is also on atorvastatin 40 mg and last lipid panel was within reasonable limits. Venous insufficiency. He is currently on Lasix 40 mg in the morning which helped with fluid retention from coronary artery disease and venous insufficiency. Stay hydrated. Given referral to vascular surgery for further evaluation. Insomnia. He is currently on trazodone 150 mg daily. Acid reflux. He is on Protonix 40 mg daily and his symptoms are under control. Obesity. Side effects of obesity discussed which is making him more short of breath and causing generalized body aches and pains. Encouraged to increase physical activity cut back on calorie intake. 11/13/2024 Insomnia, unspecified (ICD-10 - G47.00) Mr. Smith is a 73 year old gentleman with impaired fasting glucose, hypertension, hyperlipidemia, CAD and GERD here for Medicare Wellness visit. Plan is as follows: CAD/venous insuffeciency. s/p valve replacement. He is on Lasix. He follows up with Cardiology. Keep legs elevated and monitor weight at home. He may also wear compression stockings. Hypertension. Blood pressure is within reasonable limits. Continue current regimen. EKG is done in office today with heart rate of 63 bpm, sinus rhythm. 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 He had a recent echo which showed ejection fraction of 60-65 percent, with no LV wall motion abnormality. With right ventricle cavity mildly dilated, trace mitral and tricuspid regurgitation. Otherwise no concern. check comp/microalbumin Hyperlipidemia. Last lipid panel within normal limits. Continue Atorvastatin 40 mg daily. GERD. Continue Pantoprazole 40 MG daily. BPH. He is on Flomax 0.4 mg and Vesicare 10 mg EDWAR. He is interested on using CPAP. MDD/Insmonia: started patient on sertraline 25 mg. Possible side effects have been discussed. He does have family support. No SI. Will follow up in 4 weeks Increased Trazodone to 100mg. Dyspnea. Ongoing CC since May. Etiology is Multifactorial given history of cardiac problems, deconditioning, he recently had echo which was non-concerning, he does have an upcoming stress echo test done with the electronic resources librarian. Physical examination is non-concerning with vital signs within normal limits and EKG is not concerning as well. However, with a long history of smoking, will get a CT of the lung and order PFTS to r/o obstructive lung disease. Eye screening. He sees his permit technician regularly. Dental screening. He sees dentist regularly Immunizations. He is up-to-date on his COVID, influenza, pneumonia, shingles, zoster, TDAP vaccinations. Full code. HCP form has been provided for update as his was his HCP and she recently . General concerns have been discussed I have rendered the services for this patient under direct supervision of Dr. Yancey, who did not see the patient but was available upon request 11/13/2024 Dyspnea, unspecified (ICD-10 - R06.00) Mr. Smith is a 73 year old gentleman with impaired fasting glucose, hypertension, hyperlipidemia, CAD and GERD here for Medicare Wellness visit. Plan is as follows: CAD/venous insuffeciency. s/p valve replacement. He is on Lasix. He follows up with Cardiology. Keep legs elevated and monitor weight at home. He may also wear compression stockings. Hypertension. Blood pressure is within reasonable limits. Continue current regimen. EKG is done in office today with heart rate of 63 bpm, sinus rhythm. 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 He had a recent echo which showed ejection fraction of 60-65 percent, with no LV wall motion abnormality. With right ventricle cavity mildly dilated, trace mitral and tricuspid regurgitation. Otherwise no concern. check comp/microalbumin Hyperlipidemia. Last lipid panel within normal limits. Continue Atorvastatin 40 mg daily. GERD. Continue Pantoprazole 40 MG daily. BPH. He is on Flomax 0.4 mg and Vesicare 10 mg EDWAR. He is interested on using CPAP. MDD/Insmonia: started patient on sertraline 25 mg. Possible side effects have been discussed. He does have family support. No SI. Will follow up in 4 weeks Increased Trazodone to 100mg. Dyspnea. Ongoing CC since May. Etiology is Multifactorial given history of cardiac problems, deconditioning, he recently had echo which was non-concerning, he does have an upcoming stress echo test done with the electronic resources librarian. Physical examination is non-concerning with vital signs within normal limits and EKG is not concerning as well. However, with a long history of smoking, will get a CT of the lung and order PFTS to r/o obstructive lung disease. Eye screening. He sees his permit technician regularly. Dental screening. He sees dentist regularly Immunizations. He is up-to-date on his COVID, influenza, pneumonia, shingles, zoster, TDAP vaccinations. Full code. HCP form has been provided for update as his was his HCP and she recently . General concerns have been discussed I have rendered the services for this patient under direct supervision of Dr. Yancey, who did not see the patient but was available upon request 12/11/2024 Insomnia, unspecified (ICD-10 - G47.00) Mr. Smith is a 74 year old gentleman with impaired fasting glucose, hypertension, hyperlipidemia, CAD and recent stress test which was negative for ischemia and last echocardiogram showed EF of 60-65% and GERD here for follow-up on generalized anxiety disorder. Generalized anxiety disorder. He is stable on sertraline 25 mg daily. He has tolerated the medication fine. Discussed with patient we have little to go up if needed. No need for therapy at this point in time. Coronary artery disease/hypertensi on/hyperlipidemia. He recently had stress test done which was negative. His blood pressure is well controlled on losartan 100 mg along with amlodipine 10 mg daily and he is also on atorvastatin 40 mg and last lipid panel was within reasonable limits. Venous insufficiency. He is currently on Lasix 40 mg in the morning which helped with fluid retention from coronary artery disease and venous insufficiency. Stay hydrated. Given referral to vascular surgery for further evaluation. Insomnia. He is currently on trazodone 150 mg daily. Acid reflux. He is on Protonix 40 mg daily and his symptoms are under control. Obesity. Side effects of obesity discussed which is making him more short of breath and causing generalized body aches and pains. Encouraged to increase physical activity cut back on calorie intake. 11/13/2024 Major depressive disorder, single episode, unspecified (ICD-10 - F32.9) Mr. Smith is a 73 year old gentleman with impaired fasting glucose, hypertension, hyperlipidemia, CAD and GERD here for Medicare Wellness visit. Plan is as follows: CAD/venous insuffeciency. s/p valve replacement. He is on Lasix. He follows up with Cardiology. Keep legs elevated and monitor weight at home. He may also wear compression stockings. Hypertension. Blood pressure is within reasonable limits. Continue current regimen. EKG is done in office today with heart rate of 63 bpm, sinus rhythm. 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 He had a recent echo which showed ejection fraction of 60-65 percent, with no LV wall motion abnormality. With right ventricle cavity mildly dilated, trace mitral and tricuspid regurgitation. Otherwise no concern. check comp/microalbumin Hyperlipidemia. Last lipid panel within normal limits. Continue Atorvastatin 40 mg daily. GERD. Continue Pantoprazole 40 MG daily. BPH. He is on Flomax 0.4 mg and Vesicare 10 mg EDWAR. He is interested on using CPAP. MDD/Insmonia: started patient on sertraline 25 mg. Possible side effects have been discussed. He does have family support. No SI. Will follow up in 4 weeks Increased Trazodone to 100mg. Dyspnea. Ongoing CC since May. Etiology is Multifactorial given history of cardiac problems, deconditioning, he recently had echo which was non-concerning, he does have an upcoming stress echo test done with the electronic resources librarian. Physical examination is non-concerning with vital signs within normal limits and EKG is not concerning as well. However, with a long history of smoking, will get a CT of the lung and order PFTS to r/o obstructive lung disease. Eye screening. He sees his permit technician regularly. Dental screening. He sees dentist regularly Immunizations. He is up-to-date on his COVID, influenza, pneumonia, shingles, zoster, TDAP vaccinations. Full code. HCP form has been provided for update as his was his HCP and she recently . General concerns have been discussed I have rendered the services for this patient under direct supervision of Dr. Yancey, who did not see the patient but was available upon request Plan Of Treatment Pending Test Test Name Order Date Stool Culture 03/16/2018 Stool-C Difficile Toxin 03/16/2018 PFTS with DLCO 11/13/2024 HEMOGLOBIN A1C 04/20/2022 CT Chest WO 11/13/2024 Next Appt Details Provider Name:YOLANDA YANCEY , 06/12/2025 09:45:00 AM, [address] [place] [address], [id number], Insurance Providers Payer Name Payer Address Payer Phone Subscriber Number Group Number Insured Name Patient Relationship to Insured Coverage Start Date Coverage End Date Medicare [address] [place] [address] [id number] Fili Smith Self - patient is the insured 4 [facility] [address] [place] [address] [phone] [id number] Fili Smith Self - patient is the insured 4 Medical (General) History Medical History History ICD Code hypertension, benign hyperlipidemia Coronary artery disease See Dr Rice acid reflux insomnia BPH Bioprosthetic aortic valve replacement Surgical History Surgery Date(Month/Year) AVR IN 2016 AT [facility] [address] WINN LTKR By DR Weber 01/07/23 Hospitalization History Reason Date(Month/Year)
== END 2025-02-13 12:14 | disposition home or self-care (01) ==
LOC: HO.HSMS 10:59
PROVIDERS: PCP Hospitalist; Visit Provider Nurse Practitioner Family
DX: G47.33 Obstructive sleep apnea (adult) (pediatric) (principal); G47.61 Periodic limb movement disorder; R41.89 Other symptoms and signs involving cognitive functions and awareness
CPT/HCPCS: 99213

== ENCOUNTER → 2025-02-13 10:59 | Outpatient (BNVA) | payer MEDICARE, SELFPAY | PROVIDERS: PCP Hospitalist; Visit Provider Nurse Practitioner Family | DX: G47.33 Obstructive sleep apnea (adult) (pediatric) (principal); G47.61 Periodic limb movement disorder; R41.89 Other symptoms and signs involving cognitive functions and awareness | CPT/HCPCS: 99212 ==